=== PATIENT | female | born 1960 | race Caucasian/White ===

== ENCOUNTER 2016-03-24 18:39 | Emergency (ER) | payer OTHER, MEDICAID ==
[2016-03-24 19:13] VITALS: RESP 18; O2SAT 97
--- NOTE | 2016-03-24 21:13 | EDPHY ---
H & P Stated Complaint: SWELLING UNDER CHIN, ?LYMPH NODE,MULTIPLE DENTAL SURGERIES: AUGUST,OCT, JAN Time Seen by Provider: 03/24/16 20:37 HPI/ROS: CHIEF COMPLAINT: chin swelling HISTORY OF PRESENT ILLNESS: 56-year-old female presents emergency department reporting a 5 day history of increasing swelling and tenderness under her chin. Patient reports a history of dental procedures for dental infections last 1 being 2 months ago. She was having increased pain in her upper right jaw last month and saw her oral surgeon who placed her on ibuprofen which helped without pain. She denies tongue swelling, throat swelling, difficulty swallowing, no fevers or chills. REVIEW OF SYSTEMS: A comprehensive 10 point review of systems is otherwise negative aside from elements mentioned in the history of present illness. Source: Patient Exam Limitations: No limitations - Personal History LMP (Females 10-55): Post Menopausal Current Tetanus/Diphtheria Vaccine: Yes Tetanus Vaccine Date: 2012 - Medical/Surgical History Hx Asthma: No Hx Chronic Respiratory Disease: No Hx Diabetes: No Hx Cardiac Disease: No Hx Renal Disease: No Hx Cirrhosis: No Hx Alcoholism: No Hx HIV/AIDS: No Hx Splenectomy or Spleen Trauma: No Other PMH: Blood clot on Left side, endometrial ablasion, carpal tunnel, tonsil out, gallbladder out, neck surgeries, DENTAL SURGERIES, FX R ARM, LEFT SHOULDER , GERD, HTN - Social History Smoking Status: Former smoker - Physical Exam Exam: Physical Exam Gen: Alert and Oriented, NAD HEENT: PERRL, moist mucous membranes, firm his tender swollen mass palpated just under her chin. No trismus, no tongue swelling, no elevation of tongue, oropharynx without erythema or edema, no abscess, patient has no teeth. No drooling, patient has good control of her oral secretions, no stridor Cardiac: Regular rate and rhythm. Respiratory: Lungs clear to auscultation bilaterally. Neurological: no meningismus. Skin: No rashes. NECK: no meningismus CV: regular rate and regular rhythm PULM: CTAB, no wheezes ABDOMEN: soft, non tender to palpation, BS present BACK: No CVA tenderness NEURO: Neurologically grossly intact EXTREMITIES: normal appearing SKIN: no rash or break in skin on exposed skin PSYCH: answers questions appropriately. Constitutional: Initial Vital Signs Temperature (C) 37.6 C 03/24/16 19:10 Heart Rate 110 H 03/24/16 19:10 Respiratory Rate 18 03/24/16 19:10 Blood Pressure 143/75 H 03/24/16 19:10 O2 Sat (%) 97 03/24/16 19:10 O2 Delivery Mode Room Air Allergies/Adverse Reactions: adhesives Allergy (Uncoded 03/24/16 19:08) Home Medications: Medication Instructions Recorded Cyclobenzaprine 05/19/14 Meloxicam 05/19/14 Amoxicillin/Clavulanate Pot 875 mg PO BID #14 tab 03/24/16 [Augmentin 875Mg] FLUoxetine 03/24/16 Hydrocodon-Acetaminophen 5-325 03/24/16 Lisinopril 03/24/16 Oxybutynin Chloride 03/24/16 PREMARIN 03/24/16 Progesterone 03/24/16 Ranitidine HCl 03/24/16 Medical Decision Making - Diagnostics Imaging: CT maxillofacial with IV contrast IMPRESSIONS 1. A 2.0-cm spiculated solid-appearing mass directly below the mandibular symphysis, solid tumor versus inflammatory phlegmon. 2. Mildly prominent submandibular lymph nodes bilaterally. 3. Focal bone resorption along the midaspect of the right mandibular body. Results called to Dr. Juares at 9:45 p.m. ED Course/Re-evaluation: 56-year-old nontoxic-appearing female presents with facial swelling under her chin that is tender. No erythema or warmth. IV established, CBC and i-STAT obtained CT maxillofacial with IV contrast ordered. Labs are unremarkable, patient is nontoxic appearing, CT face report called by Dr. Medina as a 2 cm x 1.2 cm solid mass that enhances with contrast. I have consulted with ENT Dr. Shook and have reviewed the case with him. He is recommending starting the patient on Augmentin, NSAIDs and warm compresses. She will call his office 1st thing in the morning to be seen by him tomorrow. Patient is comfortable with this plan. She is given return precautions for any tongue swelling, difficulty breathing, difficulty swallowing, fevers, any other questions or concerns. The patient is comfortable with this plan. Differential Diagnosis: Diagnosis considered but not limited to Malik's angina, abscess, enlarged lymph nodes, mass, malignancy - Data Points Laboratory Results: Laboratory Results 03/24/16 21:27 03/24/16 03/24/16 21:27 21:17 WBC 10.44 H 10^3/uL (3.80-9.50) RBC 3.89 L 10^6/uL (4.18-5.33) Hgb 10.8 L g/dL (12.6-16.3) POC Hgb 11.9 L gm/dL (12.3-15.9) Hct 33.4 L % (38.0-47.0) POC Hct 35 L % (35.5-47.5) MCV 85.9 fL (81.5-99.8) MCH 27.8 L pg (27.9-34.1) MCHC 32.3 L g/dL (32.4-36.7) RDW 13.9 % (11.5-15.2) Plt Count 413 H 10^3/uL (150-400) MPV 8.2 L fL (8.7-11.7) Neut % (Auto) 59.7 % (39.3-74.2) Lymph % (Auto) 28.9 % (15.0-45.0) Bucks % (Auto) 8.7 % (4.5-13.0) Eos % (Auto) 1.9 % (0.6-7.6) Baso % (Auto) 0.5 % (0.3-1.7) Nucleat RBC Rel Count 0.0 % (0.0-0.2) Absolute Neuts (auto) 6.23 10^3/uL (1.70-6.50) Absolute Lymphs (auto) 3.02 H 10^3/uL (1.00-3.00) Absolute Monos (auto) 0.91 H 10^3/uL (0.30-0.80) Absolute Eos (auto) 0.20 10^3/uL (0.03-0.40) Absolute Basos (auto) 0.05 10^3/uL (0.02-0.10) Absolute Nucleated RBC 0.00 10^3/uL (0-0.01) Immature Gran % 0.3 % (0.0-1.1) Immature Gran # 0.03 10^3/uL (0.00-0.10) POC Sodium 138 mEq/L (134-144) POC Potassium 4.0 mEq/L (3.3-5.0) POC Chloride 104 mEq/L (96-108) POC BUN 17 mg/dL (7-23) POC Creatinine 0.9 mg/dL (0.6-1.2) POC Glucose 88 mg/dL (70-100) Point of Care Test Results: 03/24/16 21:17 POC Sodium 138 POC Potassium 4.0 POC Chloride 104 POC BUN 17 POC Creatinine 0.9 POC Glucose 88 Departure - Departure Disposition: Home, Routine, Self-Care Clinical Impression: Facial mass Condition: Good Instructions: Atypical Facial Pain (ED) Additional Instructions: Take 875 mg of Augmentin twice a day for 7 days with food, take 600 mg of ibuprofen every 8 hours with food, warm compresses to your chin. Call the ENT doctor 1st thing in the morning to schedule an appointment to be seen. Return to the emergency department for any tongue swelling, difficulty swallowing, difficulty breathing, any new questions or concerns. 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
[2016-03-24] MEDS ORDERED: IOPAMIDOL (ISOVUE-300) 50 ML VIAL IV ONE (21:18)
[2016-03-24 21:26] VITALS: BP 118/78; PULSE 90; TEMP 98.6
[2016-03-24 21:35] LABS: % IMMATURE GRANULYOCYTES 0.3 % (0.0-1.1); ABSOLUTE IMMATURE GRANULOCYTES 0.03 10^3/uL (0.00-0.10); ADD DIFF? NO; ADD MORPH? NO; ADD SCAN? NO; ATYPICAL LYMPHOCYTE FLAG 0 (0-99); FRAGMENT RBC FLAG 0 (0-99); HEMATOCRIT 33.4 % (38.0-47.0); HEMOGLOBIN 10.8 g/dL (12.6-16.3); LEFT SHIFT FLG 0 (0-99); LIPEMIA HEMOLYSIS FLAG 80 (0-99); MEAN CELL HEMOGLOBIN 27.8 pg (27.9-34.1); MEAN CELL HEMOGLOBIN CONCENTR. 32.3 g/dL (32.4-36.7); MEAN CELL VOLUME 85.9 fL (81.5-99.8); MEAN PLATELET VOLUME 8.2 fL (8.7-11.7); PLATELET CLUMPS FLAG 0 (0-99); PLATELET COUNT 413 10^3/uL (150-400); RED BLOOD CELL COUNT 3.89 10^6/uL (4.18-5.33); RED CELL DISTRIBUTION WIDTH 13.9 % (11.5-15.2)
[2016-03-24] MEDS ORDERED: AMOXICILLIN/CLAVULANATE POT 875/125 MG TAB PO ONE (22:21)
--- NOTE | 2016-03-24 23:15 | CT ---
CT of the Face, With Contrast History: Palpable submental mass. TECHNIQUE: Axial CT images of the face are obtained after intravenous administration of 80 mL Isovue -300. Dose reduction techniques were utilized. Sagittal and coronal reformatted images were obtaine d. FINDINGS: Underneath the mandibular symphysis, there is evidence of a spiculated enhancing solid mas s, measuring 2.0 cm mediolateral dimensions x 1.2 cm AP dimensions. This may represent a solid tumor or inflammatory phlegmon. No associated fluid. Mildly prominent submandibular lymph nodes are present bilaterally, right greater than left, nonspeci fic in features. The submandibular glands enhance normally as do the parotid glands. On bone windows, there is focal bone resorption involving the midbody of the right side of the mandib le along the oral surface. No other areas of bone resorption are identified. IMPRESSIONS 1. A 2.0-cm spiculated solid-appearing mass directly below the mandibular symphysis, solid tumor jessica lupillo inflammatory phlegmon. 2. Mildly prominent submandibular lymph nodes bilaterally. 3. Focal bone resorption along the midaspect of the right mandibular body. Results called to Dr. Juares at 9:45 p.m.
== END 2016-03-24 22:36 | disposition home or self-care (01) ==
DX: R22.0 Localized swelling, mass and lump, head (principal); I10 Essential (primary) hypertension; Z87.891 Personal history of nicotine dependence
CPT/HCPCS: 70487; 99284; Q9967; 82947-QW

== ENCOUNTER → 2016-06-26 | Outpatient (CLI) | payer OTHER, MEDICAID ==
[~2016-06-26] MED LIST: IOPAMIDOL (ISOVUE-300) 100 ML BTL IV ONE
== END ==
LOC: FIMAGING 13:29
DX: R22.1 Localized swelling, mass and lump, neck (principal)
CPT/HCPCS: 70491; Q9967

== ENCOUNTER → 2017-11-04 | Outpatient (CLI) | payer OTHER, MEDICAID | LOC: FIMAGING 13:26 | DX: M79.89 Other specified soft tissue disorders (principal); T84.038A Mechanical loosening of other internal prosthetic joint, initial encounter ==

== ENCOUNTER → 2018-06-28 | Outpatient (CLI) | payer OTHER, MEDICAID | LOC: FIMAGING 12:22 | PROVIDERS: ATTEND Neurological Surgery | DX: M50.321 Other cervical disc degeneration at C4-C5 level (principal) ==